=== PATIENT | female | born 1960 | race Caucasian/White ===

== ENCOUNTER 2024-12-02 12:10 | Emergency (ER) | payer OTHER, SELFPAY ==
[2024-12-02 12:17] VITALS: BP 91/52; PULSE 67; RESP 18; TEMP 37; O2SAT 99; BMI 19.2
--- NOTE | 2024-12-02 13:27 | ED.GENADULT ---
HPI - General Adult General Chief complaint: Headache/Migraine Stated complaint: Trouble with vision Time Seen by Provider: 12/02/24 12:41 History of Present Illness HPI narrative: This 64-year-old female comes in reporting sensitivity to light an a mild type headache. She states that she gets migraine headaches at times and occasionally have some visual changes that are more like scintillating scotoma. Today she comes in because she was driving home and her eyes became very sensitive to the light. It is a nicole day and there was snow on the ground so lots of bright stimuli is present today. She reports a mild headache but otherwise has good health and no other complaints. She does not report any speech change or altered sensation. Review of Systems Status of ROS: Reports: 10 or more systems reviewed and unremarkable except as noted in History and below Narrative: Constitutional: No fevers, no weight gain or loss. Eyes: No discharge. Extra sensitivity to light. HENT: No congestion, no sore throat, no ear pain. Cardiovascular: No chest pain, no palpitations. Respiratory: No shortness of breath, no wheezes, no cough. Gastrointestinal: No abdominal pain, no vomiting, no diarrhea. Genitourinary: No dysuria, no hematuria. Musculoskeletal: Normal range of motion. Skin: No rashes, no pruritis. Neurological: No dizziness, weakness, sensory change, speech change. Endo/Heme/Allergies: No bruising or bleeding. No polydipsia. Pysch: no suicidality, no anxiety, no insomnia. All other systems reviewed and are negative. Exam Narrative: Exam Narrative: Constitutional: Well-developed, well-nourished, no acute distress. HEENT: Normocephalic, atraumatic. Funduscopic exam appears normal bilaterally. Neck: Normal range of motion. Nontender. Supple. Heart: Regular. No murmurs. Normal rate. Intact distal pulses. Lungs: Clear to auscultation. No chest discomfort. No wheezes, rhonchi, or rales. Abdomen: Normal bowel sounds. Nontender. No rebound tenderness. Genitalia: Deferred. Back: No midline tenderness. Normal range of motion. Extremities: Normal range of motion. No injury. Skin: Intact. No rash. Warm. No erythema or pallor. Neurologic: No altered sensation. No weakness. Alert and oriented. No facial asymmetry. Tongue is midline. [id number] is normal. No pronator drift. Warehouse Helper strength is equal bilaterally. Able to raise each leg from the bed. Psychiatric: No suicidality. No anxiety or depression. No insomnia. Nursing notes and vitals signs are reviewed. Const: Vital Signs, click to edit/add: Vital Signs - 24 hr 12/02/24 12:17 Temperature 98.6 F Pulse Rate [Pulse Oximeter] 67 Respiratory Rate 18 Blood Pressure [Ri ght Upper Arm] 91/52 L Pulse Oximetry 99 Oxygen Delivery Me thod Room Air Course Vital Signs Vital signs: Initial Vital Signs Temperature 98.6 F 12/02/24 12:17 Temperature Source Temporal Artery Scan 12/02/24 12:17 Pulse Rate 67 12/02/24 12:17 Respiratory Rate 18 12/02/24 12:17 Blood Pressure 91/52 L 12/02/24 12:17 Blood Pressure Mean 65 L 12/02/24 12:17 Pulse Oximetry 99 12/02/24 12:17 Oxygen Delivery Method Room Air 12/02/24 12:17 Vital Signs Temperature 98.6 F 12/02/24 12:17 Pulse Rate 67 12/02/24 12:17 Respiratory Rate 18 12/02/24 12:17 Blood Pressure 91/52 L 12/02/24 12:17 Pulse Oximetry 99 12/02/24 12:17 Oxygen Delivery Method Room Air 12/02/24 12:17 Temperature 98.6 F 12/02/24 12:17 Pulse Rate 67 12/02/24 12:17 Respiratory Rate 18 12/02/24 12:17 Blood Pressure 91/52 L 12/02/24 12:17 Pulse Oximetry 99 12/02/24 12:17 Oxygen Delivery Method Room Air 12/02/24 12:17 Medical Decision Making MDM Narrative Medical decision making narrative: This 64-year-old female has a history of migraine headaches and does report a mild headache but comes in today because of distinct light sensitivity when she was driving home. She does not report any other visual changes. She arrives here with normal vital signs and has normal exam. I did discuss lab and imaging options with the patient and in a process of shared decision making these were declined. She does have sunglasses that will help her. I did also offer treatments for her headache which she also declined. Discharge Plan Discharge Clinical Impression: Migraine, Photosensitivity Patient Disposition: Home, Self-Care Condition: Stable Additional Instructions: Use [id number] medicines as needed and directed. Wear sunglasses for photosensitivity. Follow up with MD return if worsening. Stand Alone Forms: [employer] Instructions
--- OUTSIDE RECORDS SUMMARY | 2024-12-02 13:54 | XMS_ITS | Clinical Summary ---
Author Organization [facility] Address [address] [place] [address] Care Team Providers Care On Site Manager Name Role Phone Eliceo Benitez Primary Care Provider [phone] Allergies Active Allergy Reactions Criticality Noted Date Comments Acyclovir Rash Low 07/14/2013 Contrast Dye Hives 07/14/2013 Epinephrine 07/14/2013 convulsive response Fentanyl 07/14/2013 convulsive response Midazolam 07/14/2013 convulsive response Trimethoprim Difficulty breathing 07/14/2013 Medications Metoprolol Tartrate (LOPRESSOR PO) Take 12.5 mg by mouth 2 times daily Active Rosuvastatin Calcium (CRESTOR PO) Take 20 mg by mouth daily Active Warfarin Sodium (COUMADIN PO) Take 5 mg by mouth Take 1 to 1.5 tablets daily Active levothyroxine (SYNTHROID/LEVO THROID) 75 MCG tablet Take 75mcg five days a week, and take 37.5mcg two day a week (on Sundays). 0 Active liothyronine (CYTOMEL) 5 MCG tablet 6 Active LORazepam (ATIVAN) 0.5 MG tablet Only as needed. 1 Active pantoprazole (PROTONIX) 40 MG EC tablet Take 40 mg by mouth 1 Active spironolactone (ALDACTONE) 50 MG tablet Take 50 mg by mouth 7 Active torsemide (DEMADEX) 20 MG tablet TAKE 2 TABLETS EVERY MORNING & 1 TABLET EVERY AFTERNOON. ADDITIONAL TABLETS DIRECTED BY CARDIO 0 Active inclisiran (LEQVIO) 284 MG/1.5ML SOSY SQ injection Inject 284 mg Subcutaneous Active Active Problems Problem Noted Date Diagnosed Date Parathyroid disease 11/04/2021 Senile osteoporosis 10/09/2020 Encounters Date Type Department Care Team Description 10/26/2024 Orders Only [facility] [address] [place] [address] Charmaine Fuentes MD Senile osteoporosis (Primary Dx) 10/18/2024 Medical Correspondence [facility] Information Management [address] [facility] [address] [place] [phone] Scan, Non-Provider from Last 3 Months Social History Tobacco Use Types Packs/Day Years Used Date Smoking Tobacco: Never Smokeless Tobacco: Never Tobacco Cessation:Counseling Given: Yes Alcohol Use Standard Drinks/Week Comments Yes 0 (1 standard drink = 0.6 oz pur e alcohol) 3 Adolescent Education Answer Date Record ed Getting School Help Needed Not on file 07/10 Comments No Sex and Gender Information Value Date Recorded Sex Assigned at Not on file Legal Sex Female 4:01 AM PAYMENT MANAGER Gender Identity Not on file Sexual Orientation Not on file Last Filed Vital Signs Vital Sign Reading Time Taken Comments Blood Pressure 110/61 12/16/2023 4:02 PM PAYMENT MANAGER Pulse 76 12/16/2023 4:02 PM PAYMENT MANAGER Temperature 36.5 C (97.7 F) 12/16/2023 4:02 PM PAYMENT MANAGER Respiratory Rate 16 12/16/2023 4:02 PM PAYMENT MANAGER Oxygen Saturation 99% 12/16/2023 4:0 2 PM PAYMENT MANAGER Inhaled Oxygen Concentration - - Weight 47 kg (103 lb 9.6 oz) 11/10/2021 1:00 PM PAYMENT MANAGER Height 157.5 cm (5' 2) 11/13/2020 1:32 PM PAYMENT MANAGER Patient reported Body Mass Index 18.95 11/13/2020 1:32 PM PAYMENT MANAGER Plan of Treatment Upcoming Encounters Date Type Department Care Team (Late st Contact Info) Description 12/13/2024 1:30 PM PAYMENT MANAGER Infusion Therapy Visit [facility] [address] [place] [phone] Health Maintenance Due Date Last Done Comments ADVANCE CARE PLANNING 1960 ANNUAL REVIEW OF HM ORDERS 1960 CT COLONOGRAPHY 1960 FIT 1960 FLEX SIG 1960 sDNA (Cologuard) 1960 HIV SCREENING 1975 PAP 1981 LIPID 10/19/2023 10/19/2022 TSH W/FREE T4 REFLEX 10/19/2023 10/19/2022 YEARLY PREVENTIVE VISIT 05/20/2024 05/20/2023, 11/17 PHQ-2 (once per calendar year) 2024 MAMMO SCREENING 05/25/2025 05/25/2023, 05/11, 10/20/2021, Additional history exists GLUCOSE 10/19/2025 10/19/2022, 07/14/2013 COLONOSCOPY 05/20/2030 05/20/2020, 06/29/2019 COLORECTAL CANCER SCREENING 05/20/2030 DTAP/TDAP/TD IMMUNIZATION (4 - Td or Tdap) 03/05/2033 03/05/2023, 09/23/2022, 03/25/2012 RSV VACCINE (1 - 1-dose 75+ series) 2035 HEPATITIS C SCREENING Completed 05/01/2020, 007 ZOSTER IMMUNIZATION Completed 08/29/2020, 0 MENINGITIS IMMUNIZATION Aged Out 05/17/2024 No l onger eligible based on patient's age to complete this topic Pneumococcal Vaccine: 50+ Years Completed 05/17/2024, 09/30/2016, 11/15/2014, Additional history exists COVID-19 Vaccine Completed 07/14/2024, 12/2023, 06/29/2022, Additional history exists INFLUENZA VACCINE Completed 07/14/2024, , 06/29/2022, Additional history exists HPV IMMUNIZATION Aged Out No longer e ligible based on patient's age to complete this topic Procedures Procedure Name Priority Date/Time Associated Diagnosis Comments LAB RESULT - HIM SCAN 10/16/2024 12:00 AM PAYMENT MANAGER GLUCOSE (EXTERNAL RESULT) Routine 10/19/2022 1:43 PM PAYMENT MANAGER THYROID STIMULATING HORMONE (TSH) (EXTERNAL RESULT) Routine 10/19/2022 1:42 PM PAYMENT MANAGER LIPID PANEL (EXTERNAL RESULT) Routine 10/19/2022 10:38 AM PAYMENT MANAGER COLONOSCOPY - HIM SCAN 06/29/2019 from Last 3 Months or Most Recently Relevant to Health Maintenance Results * Lab Result - HIM Scan (10/16/2024 12:00 AM PAYMENT MANAGER) 10/16/2024 Provider Outside NON-BEAKER LAB TESTING Final Result * (ABNORMAL) Glucose (External Result) (10/19/2022 1:43 PM PAYMENT MANAGER) Glucose (External) 69(L) 70 - 99 mg/dL [facility] Blood 10/19/2022 1:43 PM PAYMENT MANAGER Narrative [facility] - 10/19/2022 1:43 PM PAYMENT MANAGER ENDOCRINOLOGY [facility] PROGRESS NOTE us Provider Outside LAB - [facility] EXTERNAL RESULT Final Result Performing Organization Address City/[facility]/ZIP Co de Phone Number [facility] [address] * Thyroid Stimulating Hormone (TSH) (External Result) (10/19/2022 1:42 PM PAYMENT MANAGER) TSH (External) 0.731 0.450 - 4.500 uIU/mL [facility] Blood 10/19/2022 1:42 PM PAYMENT MANAGER [facility] - 10/19/2022 1:42 PM PAYMENT MANAGER ENDOCRINOLOGY [facility] PROGRESS NOTE us Provider Outside LAB - [facility] EXTERNAL RESULT Final Result Performing Organization Address [facility]/ZIP Co de Phone Number [facility] [address] * (ABNORMAL) Lipid Panel (External Result) (10/19/2022 10:38 AM PAYMENT MANAGER) Cholesterol (External) 271(H) 100 - 199 mg/dL [facility] ([facility]) Triglycerides (External) 142 0 - 149 mg/dL [facility] ([facility]) HDL Cholesterol (External) 71 >39 mg/dL [facility] ([facility]) LDL Cholesterol Calculated (External) 175(H) 0 - 99 mg/dL [facility] ([facility]) Blood 10/19/2022 10:3 8 AM PAYMENT MANAGER Narrative [facility] ([facility]) - 10/19/2022 10:38 AM PAYMENT MANAGER See Care Everywhere-[facility] us Provider Outside LAB - HIM EXTERNAL RESULT Final Result [facility] ([facility] [address] [place] [address], [facility] [phone] * COLONOSCOPY - HIM SCAN (06/29/2019) us Historical Provider PROCEDURES Final Result from Last 3 Months or Most Recently Relevant to Health Maintenance Insurance [employer] Care Teams On Site Manager Relationship Specialty Start Date End Date Clinic, Eliceo Laura [address] [place] [id number] PCP - General 10/07/15
--- OUTSIDE RECORDS SUMMARY | 2024-12-02 13:54 | XMS_ITS | Encounter Summary ---
Author Organization [facility] Address [address] [place] [id number] Care Team Providers Care Assistant Women'S Rowing Coach Name Role Phone Eliceo Benitez Primary Care Provider Encounter Details Date Type Department Care Team (Late st Contact Info) Description 10/18/2024 Medical Correspondence [facility] Health Information Management [address] [facility] [address] [place] [address] Scan, Non-Provider Social History Tobacco Use Types Packs/Day Years Used Date Smoking Tobacco: Never Smokeless Tobacco: Never Alcohol Use Standard Drinks/Week Comments Yes 0 (1 standard drink = 0.6 oz pur e alcohol) 3 Adolescent Education Answer Date Record ed Getting School Help Needed Not on file 07/10 Comments No Sex and Gender Information Value Date Recorded Sex Assigned at Not on file Legal Sex Female 4:01 AM HR INTERNSHIP Gender Identity Not on file Sexual Orientation Not on file documented as of this encounter Plan of Treatment Upcoming Encounters Date Type Department Care Team (Late st Contact Info) Description 12/13/2024 1:30 PM HR INTERNSHIP Infusion Therapy Visit [facility] [address] [place] [phone] documented as of this encounter Visit Diagnoses Not on filedocumented in this encounter Care Teams Assistant Women'S Rowing Coach Relationship Specialty Start Date End Date Eliceo Benitez [address] [place] [id number] PCP - General 10/07/15 documented as of this encounter
--- OUTSIDE RECORDS SUMMARY | 2024-12-02 13:54 | XMS_ITS | CCD ---
Author Name Interface, [id number] Address [address] [place] [address] [address] [address] Organization [facility] Address [address] [facility] [address] [address] Care Team Providers Care Chute Puller Name Role Phone Terrence Nicomehrdad Lane Care Plan Date Type Value 01/24/2025 APPOINTMENT OV 20 MIN 01/22/2025 APPOINTMENT LAB 15 MIN 09/13/2024 APPOINTMENT OFFICE FU 20 MIN NO TREATMENT 09/04/2024 APPOINTMENT LAB 15 MIN 05/17/2024 APPOINTMENT OFFICE FU 20 MIN NO TREATMENT 05/17/2024 APPOINTMENT LAB 15 MIN 12/17/2023 APPOINTMENT OFFICE FU 20 MIN NO TREATMENT 12/10/2023 APPOINTMENT LAB 15 MIN 03/19/[address] chest w/o con trast 12/10/2023 LABORDER Iron profile 12/10/2023 LABORDER Ferritin panel 12/10/2023 LABORDER CMP 12/10/2023 LABORDER CMP 12/10/2023 LABORDER Iron profile 12/10/2023 LABORDER Ferritin panel 12/10/2023 LABORDER CBC w/ auto diff 12/10/2023 LABORDER CBC w/ auto diff 05/17/2024 LABORDER CMP 05/17/2024 LABORDER CBC w/ auto diff 05/17/2024 LABORDER Iron profile 05/17/2024 LABORDER Ferritin panel 09/04/2024 LABORDER CBC w/ auto diff 09/04/2024 LABORDER Ferritin panel 09/04/2024 LABORDER CMP 09/04/2024 LABORDER Iron profile 01/22/2025 LABORDER CBC w/ auto diff 01/22/2025 LABORDER Ferritin panel 01/22/2025 LABORDER Iron profile 01/22/2025 LABORDER CMP Reason for Visit OFFICE FU 20 MIN NO TREATMENT Encounters Date Name 01/24/2025 Iron deficiency anem ia (disorder) 01/22/2025 Iron deficiency anem ia (disorder) 01/24/2025 OV 20 MIN 01/22/2025 LAB 15 MIN Functional Status Date Name Score 08/27/2022 Karnofsky performance status 80 Immunizations Date Name Route Dose Instructions Refusal Reason Stat us Flu vaccine - Adult Comp leted Diagnostic Results Date Type Test Units Lower Limit Upper Limit Result Flag Comments Status Ordered By Specimen Source Lab Address 12/09 TIBC panel Iron& -A ug/dL 50.0 175.0 72 FINAL [facility] * [facility], [address] [place] [address] [place] [address] [id number] 09/04 CMP Alkal ine phosp hatas e U/L 36.0 125.0 62 FINAL Gale [place] * [facility], [facility] [address] [id number] 09/04 CMP ALT/S GPT U/L 0.0 34.0 37 High FINAL [facility]ale [place] * [facility], [facility] [address] [place] [address] [id number] 09/04 CMP Calci um mg/dL 8.4 10.2 9.7 FINAL [facility] [place] * [facility], [address] [facility] [address] [id number] 0 09/04 CMP GFR estim ate ml/min /1.73m ^2 56.0 Low GFR is calculate d using the CKD-EPI equation. FINAL [facility]ale [place] * [facility], [facility] [address] [id number] 0 09/04 CMP CO2 mmol/L 22.0 30.0 30 The expected total allowable error for CO2 is 5.6%. We have seen up to 10% differenc e in values if reported at the end of the 96 hour stability window. Please consider the clinical significa nce of a 2.0-2.5 mmol/L lower reported CO2 value if reported at the end of the 96 hour stability window. FINAL [facility]ale [place] * [facility], [address] [facility] [id number] 0 09/04 CMP Gluco se mg/dL 74.0 100.0 85 FINAL [facility]ale [place] * [facility], [address] [facility] [id number] 09/04 CMP Chlor amador mmol/L 96.0 107.0 97 FINAL [facility]ale [place] * [facility], [address] [facility] [id number] 0 09/04 CMP Total prote in g/dL 6.3 8.2 7.9 FINAL [facility] [place] * [facility], [address] [facility] [id number] 0 09/04 CMP BUN mg/dL 7.0 17.0 22.0 High FINAL [facility] [place] * [facility], [address] [facility] [id number] 0 09/04 CMP Creat inine mg/dL 0.66 1.25 1.10 FINAL [facility] [place] * [facility], [address] [facility] [id number] 0 09/04 CMP AST/S GOT U/L 14.0 36.0 57 High FINAL [facility] [place] * [facility], [address] [facility] [id number] 0 09/04 CMP Album in g/dL 3.5 5.0 5.1 High FINAL [facility] [place] * [facility] [place], [address] [facility] [id number] 0 09/04 CMP Bilir ubin, total mg/dL 0.2 1.3 0.7 FINAL [facility] [place] * [facility] [place], [address] [facility] [id number] 0 09/04 CMP Sodiu m mmol/L 137.0 145.0 134 Low FINAL [facility] [place] * [facility] [place], [address] [facility] [id number] 0 09/04 CMP Potas sium mmol/L 3.5 5.1 4.4 FINAL Gael [place] * [facility] [place], [address] [facility] [id number] 0 09/04 CBC w/ auto diff Ta # (ANC) K/uL 1.6 6.6 4.2 FINAL [facility], [address] [place] [address] [address] [place] [id number] 0 09/04 CBC w/ auto diff IG % % 0.0 0.5 0.5 [facility], [address] [place] [address] [address] [place] [id number] 0 09/04 CBC w/ auto diff MO # K/uL 0.2 1.3 1.0 [facility]AL [facility], [address] [place] [address] [address] [place] [id number] 0 09/04 CBC w/ auto diff MCV fL 80.0 104.0 96.0 FINAL [facility] [place], [address] [place] [address] [address] [place] [id number] 0 09/04 CBC w/ auto diff IG # K/uL 0.0 0.03 0.03 [facility]AL [facility] [place], [address] [place] [address] [address] [place] [id number] 0 09/04 CBC w/ auto diff MO % % 6.0 15.0 14.8 FINAL [facility] [place], [address] [place] [address] [address] [place] [id number] 0 09/04 CBC w/ auto diff EO # K/uL 0.0 0.6 0.2 FINAL [facility] [place], [address] [place] [address] [address] [place] [id number] 0 09/04 CBC w/ auto diff EO % % 0.0 7.0 2.7 FINAL [facility] [place], [address] [place] [address] [address] [place] [id number] 0 09/04 CBC w/ auto diff RBC M/uL 3.9 5.1 4.25 [facility] [place], [address] [place] [address] [address] [place] [id number] 0 09/04 CBC w/ auto diff MPV fL 9.5 13.4 8.8 Low [facility]AL [facility] [place], [address] [place] [address] [address] [place] [id number] 0 09/04 CBC w/ auto diff WBC K/uL 3.0 8.9 6.6 [facility]AL [facility] [place], [address] [place] [id number] 0 09/04 CBC w/ auto diff PLT K/uL 113.0 364.0 275 FINAL [facility] [place], [address] [place] [address] [address] [place] [id number] 0 09/04 CBC w/ auto diff BA % % 0.0 2.0 0.8 [facility]AL [facility] [place], [address] [place] [address] [address] [place] [id number] 0 09/04 CBC w/ auto diff BA # K/uL 0.0 0.2 0.1 [facility]AL [facility] [place], [address] [place] [address] [address] [place] [id number] 0 09/04 CBC w/ auto diff HGB g/dL 11.3 15.2 13.3 FINAL [facility] [place], [address] [place] [address] [address] [place] [id number] 0 09/04 CBC w/ auto diff RDW % 11.4 16.1 14.70 FINAL [facility] [place], [address] [place] [address] [address] [place] [id number] 0 09/04 CBC w/ auto diff LY % % 14.0 41.0 18.0 FINAL [facility] [place], [address] [place] [address] [address] [place] [id number] 0 09/04 CBC w/ auto diff LY # K/uL 0.4 3.6 1.2 FINAL [facility] - [place], [address] [address] [place] [id number] 0 09/04 CBC w/ auto diff MCH pg 26.0 35.0 31.3 FINAL [facility] [place], [address] [place] [address] [address] [place] [id number] 0 09/04 CBC w/ auto diff MCHC g/dL 30.0 35.0 32.6 FINAL [facility] [place], [address] [place] [address] [address] [place] [id number] 0 09/04 CBC w/ auto diff NRBC % #/100W BC 0.0 0.2 0.0 FINAL [facility] [place], [address] [place] [address] [address] [place] [id number] 0 09/04 CBC w/ auto diff HCT % 35.0 48.0 40.8 FINAL [facility] [place], [address] [place] [address] [place] [id number] 0 09/04 CBC w/ auto diff Ta % % 43.0 74.0 63.2 [facility]AL [facility] [place], [address] [place] [address] [place] [id number] 0 09/04 Lucas tin panel Lucas tin ng/mL 6.24 264.0 222.00 FINAL Gale [place] * [facility] [place], [address] [facility] [id number] 0 09/04 Iron profi le Iron, % satur ation % 20.0 55.0 25 FINAL Gale [place] * [facility] [place], [address] [facility] [id number] 0 09/04 Iron profi le Iron ug/dL 37.0 170.0 95 FINAL Gale [place] * [facility] [place], [address] [facility] [id number] 0 09/04 Iron profi le TIBC ug/dL 265.0 497.0 385 FINAL Gale [place] * [facility] [place], [address] [facility] [id number] 0 09/04 Iron profi le Unbou nd iron capac ity ug/dL 75.0 410.0 290 FINAL Gale [place] * [facility] [place], [address] [facility] [id number] Medications Date Name Route Dose Frequency Instructions Start Date End Date Status Cholecalcifer ol Oral inactive Inclisiran Subcutaneous every 6 months inactive Rosuvastatin Calcium Oral active Alirocumab Subcutaneous Pen Injector [id number] inactiv e Nitroglycerin Sublingual active Liothyronine Oral active Metoprolol Oral (Tartrate) stopped Levothyroxine Oral orally 37.5 mcg as directed [facility] active Evolocumab Subcutaneous Pen Injector subcutaneously 140.0 every 2 weeks inactive Torsemide Oral orally 20.0 mg daily active Rosuvastatin Calcium Oral inactiv e Oxycodone Oral 2.5 mg PRN inactive Inclisiran Subcutaneous 6 months active Lorazepam Oral active Pantoprazole (Sodium) Oral Delayed Release orally 40.0 mg QOD active Spironolacton e Oral Daily active Potassium Chloride Oral ER Tab stopped Zoledronic Acid-Mannitol IV (Reclast) yearly active Amoxicillin Oral 500.0 dental procedure active Aspirin Oral orally 81.0 mg daily act moose Aspirin Oral stop ped 05/14 Furosemide Oral PO 1.0 TABLET(S) BID 05/14 stopped 05/14 Docusate Sodium Oral PO 1.0 CAPSULE(S) BID PRN 05/14 stopped 05/14 Sennosides Oral PO 1.0 TABLET(S) daily 05/14 stopped 05/14 Metoprolol Oral (Tartrate) PO 25.0 MG BID 2008 active 03/05 Warfarin Oral PO 7.5 MG as directed 2008 active 03/05 Levothyroxine Oral PO 1.0 TABLET(S) as directed M-F 2008 active 03/05 Potassium Chloride Oral ER Cap PO 1.0 CAPSULE(S) , SUSTAINED ACTION BID 2008 inactive Problems Diagnosis Status Date of Diagnosi s Cyst of ovary (disorder) Active Ascites (disorder) Active CHF, acute on chronic Active Tricuspid regurgitation Active Ulcerative colitis Active Disorder of esophagus (disorder) Active Iron deficiency anemia (disorder) Active Hodgkin's disease (disorder) Active Cannot tolerate oral iron Active Cough (finding) Inactive Procedures Date Category Name Instructions Status 12/17/2023 Physician Order RTC MD Ordered 05/17/2024 Physician Order RTC MD Ordered 09/13/2024 Physician Order RTC MD Ordered 01/24/2025 Physician Order RTC MD Ordered Social History Date Name Value 09/13/2024 Smoking Status Never smoker 09/13/2024 Sex Female Vital Signs Date Type Value 09/13/2024 Height 62.00 09/13/2024 Weight 106.00 09/13/2024 Intravascular Systolic 98 09/13/2024 Intravascular Diastolic 54 09/13/2024 Respiratory Rate 16.00 09/13/2024 Heart Beat 58.00 09/13/2024 Body Temperature 97.80 09/13/2024 Pain Scale 0.00 09/13/2024 Oxygen Saturation 100.00 09/13/2024 BMI 19.39
--- OUTSIDE RECORDS SUMMARY | 2024-12-02 13:54 | XMS_ITS | Encounter Summary ---
Author Organization [facility] Address [address] [place] [address] Care Team Providers Care Sales And Service Representative Name Role Phone Eliceo Benitez Primary Care Provider [phone] Encounter Details Date Type Department Care Team (Late st Contact Info) Description 10/26/2024 Orders Only [facility] [address] [facility] 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 LTY NEUROPSYCHOLOGIST documented in this encounter Plan of Treatment Upcoming Encounters Date Type Department Care Team (Late st Contact Info) Description 12/13/2024 1:30 PM FACULTY NEUROPSYCHOLOGIST Infusion Therapy Visit [facility] [address] [place] [phone] documented as of this encounter Visit Diagnoses Diagnosis Senile osteoporosis- Primary documented in this encounter Care Teams Sales And Service Representative Relationship Specialty Start Date End Date Clinic, Eliceo Laura [address] [place] [id number] PCP - General 10/07/15 documented as of this encounter
--- OUTSIDE RECORDS SUMMARY | 2024-12-02 13:55 | XMS_ITS | Clinical Summary ---
Author Organization [employer] [facility] Address [address] [place] [id number] Care Team Providers Care Copper Plater Name Role Phone Erin Yuen MD Primary Care Provider [phone] Safia Kemp MD Unavailable + Nurses, Advanced Heart Failure Unavailable + Elijah Barker PharmD Unavailable [phone] Allergies Active Allergy Reactions Criticality Noted Date Comments Acyclovir Analogues Itching 05/12/2005 Blood-Group Specific Substance 03/06/2009 Patient has a nonspecific antibody. Blood product orders may be delayed. Draw one red top and two purple top tubes for all Type and Screen/ Type and Crossmatch orders. Diatrizoate Allergen Hives 03/27/2005 Epinephrine Other - Describe In Comment Field 03/27/2005 painful heartbeat, racing heart rate, Fentanyl 10/29/2009 Pt states she had jerking and BP increase Midazolam *Unknown 10/29/2009 Pt states she had jerking and BP increase with fentanyl and another medication which they gave with for a broncoscopy, thinks may be versed. Had versed 11/25/18 for CA without issue. Polymyxin B Sulf-Trimethoprim Laryngospasm 05/12/2005 Trimethoprim Dyspnea 07/14/2013 Medications liothyronine (CYTOMEL) 5 mcg tabletIndications:Othe r specified hypothyroidism Take 2.5 mcg by mouth every morning. 0 2015 Active NITROSTAT 0.4 mg sublingual tabletIndications:Ches t pain, atypical Dissolve one tablet under tongue every 5 mins as needed for chest pain for 3 doses. 25 tablet 0 2015 Active pantoprazole (PROTONIX) 40 mg delayed-release tablet Take 40 mg by mouth once every other day. 2021 Active zoledronic acid in mannitol & water (RECLAST) 5 mg/100 mL infusion Inject intravenous every 1 year. 2021 Active levothyroxine (SYNTHROID) 75 mcg tabletIndications:Othe r specified hypothyroidism Take 75 mcg oral five days a week (on Wed through Wednesday) and take 37.5 mcg oral on Wed and Wednesday. 90 Tablet 3 2021 Active aspirin chewable 81 mg chewable tabletIndications:Santa riosclerotic heart disease (ASHD) Chew 1 Tablet (81 mg) by mouth once daily with a meal. 90 Tablet 2 022 10:52 AM CDT 2021 Active amoxicillin (AMOXIL) 500 mg tabletIndications:H/O prosthetic heart valve Take 4 tablets by mouth 1 hour prior to dental procedure. 4 Tablet 1 2022 Active LORazepam (ATIVAN) 0.5 mg tabIndications:Insomni a, unspecified type TAKE 1-2 TABLETS BY MOUTH AT BEDTIME NEEDED 30 Tablet 2023 Active metoprolol tartrate (LOPRESSOR) 25 mg tabletIndications:SVT (supraventricular tachycardia) (HC) TAKE 1/2 TABLET TWICE A DAY BY MOUTH 90 Tablet 3 2023 Active spironolactone (ALDACTONE) 50 mg tabletIndications:Acut e on chronic diastolic heart failure (HC),Mitral valve replaced Take 1 Tablet (50 mg) by mouth once daily. 90 Tablet 1 2023 Active rosuvastatin (CRESTOR) 10 mg tabletIndications:Pure hypercholesterolemia Take 1 Tablet (10 mg) by mouth once daily. 90 Tablet 3 2023 Active inclisiran (LEQVIO) 284 mg/1.5 mL subcutaneous syringeIndications:Pur e hypercholesterolemia,A SHD (arteriosclerotic heart disease) Inject 284 mg subcutaneous EVERY 26 WEEKS. 1.5 mL 2023 Active warfarin (COUMADIN) 5 mg tabletIndications:H/O mitral valve replacement with mechanical valve,Anticoagulation monitoring, INR range 2.5-3.5 Take by mouth 7.5 mg (5 mg x 1.5) every Sun, Tue, Ivanna; 5 mg (5 mg x 1) all other days in the evening OR as directed 115 Tablet 2024 Active losartan (COZAAR) 25 mg tabletIndications:HTN (hypertension) Take 1 Tablet (25 mg) by mouth once daily. 30 Tablet 3 2024 Active torsemide (DEMADEX) 20 mg tabletIndications:Acut e on chronic diastolic heart failure (HC),H/O mitral valve replacement Take 20 mg as needed for weight gain of 3 or mor lbs in a day or 5 or more lbs in a week. 30 Tablet 1 2024 Active torsemide (DEMADEX) 20 mg tabletIndications:Acut e on chronic diastolic heart failure (HC),H/O mitral valve replacement Take 1 Tablet (20 mg) by mouth once daily. Until weight is back down to 98~99 lbs 11/29 Discontinued( *Medication adjustment) warfarin (COUMADIN) 5 mg tabletIndications:H/O mitral valve replacement with mechanical valve,Anticoagulation monitoring, INR range 2.5-3.5 Take by mouth 7.5 mg (5 mg x 1.5) every Sun, Tue, Ivanna; 5 mg (5 mg x 1) all other days in the evening OR as directed 11/08 Discontinued Active Problems Problem Noted Date Diagnosed Date (HFpEF) heart failure with preserved ejection fr action 06/21/2024 Closed nondisplaced comminut ed fracture of right patella with routine healing 03/11/2023 S/P AVR (aortic valve replacement) 07/17/2022 Overview (07/17/2022): Aortic Valve. On-X Prosthetic Heart Valve with Standard Sewing Ring. On-X pinion-pins, Inc. Size: 21. REF: ONXAE-21. SN: [id number]. Implanted by Dr. Briscoe on 07/17/2022. S/P TVR (tricuspid valve replacement) 07/17/2022 Overview (07/17/2022): Tricuspid valve: 29 mm epic tissue valve implanted by Dr. Rik Briscoe on 07/17/22. Aortic insufficiency with aortic stenosis 2021 Nonrheumatic tricuspid valve regurgitation 04/24 Arteriosclerotic heart disease (ASHD) 04/24/2022 Overview (04/24/2022): - RCA lesion by CTA Abnormal results of pulmonary function studies 0 12/01/2021 History of Hodgkin's disease 12/01/2021 Overview (12/01/2021): s/p radiation with resultant radiation induced hypothyroidism and mitral valve disease. ; Personal history of Hodgkin's disease Skin cancer, basal cell 12/01/2021 CHF (congestive heart failure) 12/01/2021 Overview (12/01/2021): postop restrictive/constrictive physiology with intermittent right sided heart failure. No significant increase in pericardial thickness on CT or MRI. Possibly partiially secondary to tricuspid insufficiency. Social Services Director Dr. Jorge Lopez [facility] [place]. Osteoporosis 11/17/2021 Overview (05/17/2024): Treated with yearly Reclast starting in 2020. Hyperparathyroidism 11/17/2021 H/O splenectomy 11/17/2021 Normocytic anemia 05/26/2020 Heart failure with preserved ejection fraction 0 05/26/2020 GERD (gastroesophageal reflux disease) 0 Iron deficiency anemia 04/16/2020 Polyp of duodenum 12/08/2017 Chronic ulcerative pancolitis 10/28/2017 Microscopic hematuria 06/15/2017 Drug-induced acute pancreatitis 04/29/2017 Nonspecific abdominal pain 04/01/2017 Benign neoplasm of ascending colon 01/01/2017 H/O mitral valve replacement with mechanical larisa ve 06/21/2014 Anticoagulation monitoring, INR range 2.5-3.5 Hypothyroidism 08/10/2013 Hot flashes, menopausal 04/10/2013 S/P hysterectomy 03/26/2012 Overview (12/01/2021): 2001, menorrhagia and adenomyosis Other and unspecified hyperlipidemia 10/22/2010 Cyst of ovary 12/13/2007 Overview (12/01/2021): found to be hemorrhagic cysts with colonic adhesions, s/p BSO ; Cyst Ovary MITRAL VALVE DISORDERS Overview (01/12/2006): - Mitral valve prosthesis 05/13/05 SUPRAVENTRICULAR TACHYCARDIA Overview (01/12/2006): - Status post Radiofrequency ablation 05/13/05. HISTORY OF ULCERATIVE COLITIS Stricture of female urethra Resolved Problems Problem Noted Date Diagnosed Date Resolved Date Unstable angina 05/18/2022 12/16/2022 SVT (supraventricular tachycardia) 11/17/2021 11/17/2021 Senile osteoporosis 10/09/2020 12/17/19 23 GI bleed 05/26/2020 11/17/2021 Small bowel obstruction 03/14/2020 02/0 04/2022 Abdominal distension, gaseous 12/08/2017 12/16/2022 Epigastric pain 12/08/2017 12/16/2022 Gastro-esophageal reflux dis ease with esophagitis 12/08/2017 12/16/2022 Unsp abnormal finding in spe cimens from oth org/tiss 05/05/2017 12/16/2022 Severe headache 06/21/2014 11/17/2021 Right leg pain 01/28/2014 04/16/2014 H/O mitral valve replacement 08/10/2013 11/17/2021 Chest pain, atypical 07/14/2013 022 Overview (07/14/2013): Equivocal stress test at [place] with normal echocardiogram images but subtle ECG changes. Palpitations 11/17/2021 PRIOR HODGKIN'S DISEASE 07/12 Overview (01/12/2006): - Treated with Radiation therapy. Shortness of breath 01/29/20 14 Encounters Date Type Department Care Team Description 11/30/2024 1:00 PM ENVIRONMENTAL HEALTH AIDE Office Visit [facility] [address] [place] [address] Maryjo Chappell, [facility] Mental Health Consultants Visit 11/29/2024 2:00 PM ENVIRONMENTAL HEALTH AIDE Office Visit [facility] [address] [place] [address] Ty Vega NP CHF (5 month follow up) 11/29/2024 1:20 PM ENVIRONMENTAL HEALTH AIDE Orders Only [facility] [address] [place] [address] Lab (/) 11/29/2024 12:15 PM ENVIRONMENTAL HEALTH AIDE - 11/29/2024 11:59 PM ENVIRONMENTAL HEALTH AIDE Hospital Encounter [facility] [address] [place] [address] Ty Vega NP [place], Jean Acute on chronic diastolic heart failure (HC) 11/29/2024 Refill [facility] [address] [place] [address] Safia Kemp MD Refill Request (Torsemide) 11/29/2024 Travel 11/15/2024 2:00 PM ENVIRONMENTAL HEALTH AIDE Office Visit [facility] [address] [place] [address] Maryjo Chappell, [facility] Mental Health Consultants Visit 11/15/2024 Travel 11/14/2024 Telephone [facility] [address] [place] [address] Erin Yuen MD Anticoagulation 11/14/2024 Anticoagulation (warfarin) [facility] [address] [place] [address] Brennon Benitez Inr Anticoagulation 11/14/2024 Travel 11/08/2024 Refill [facility] [address] [place] [address] Erin Yuen MD Refill Request (Warfarin) 10/25/2024 11:00 AM ENVIRONMENTAL HEALTH AIDE Office Visit [facility] [address] [place] [address] Maryjo Chappell, [facility] Mental Health Consultants Visit; Trmt Plan 10/25/2024 Travel 10/18/2024 10:30 AM ENVIRONMENTAL HEALTH AIDE Office Visit [address] [address] Maryjo Chappell [facility] Mental Health Consultants Visit 10/17/2024 Telephone [facility] [address] [place] [address] Erin Yuen MD Anticoagulation (Review INR result and dosing plan) 10/17/2024 Anticoagulation (warfarin) [address] [address] Clinic, [place] In[facility] Anticoagulation 10/17/2024 Travel 10/03/2024 10:30 AM ENVIRONMENTAL HEALTH AIDE Orders Only [facility] [address] [place] [address] Lab, [place] Lab 10/03/2024 Anticoagulation (warfarin) [address] [address] Clinic, [place] [facility] Anticoagulation 10/03/2024 Travel 09/26/2024 10:30 AM ENVIRONMENTAL HEALTH AIDE Orders Only [address] [address] Lab, [place] [facility] 09/26/2024 Anticoagulation (warfarin) [facility] [address] [place] [address] Clinic, [place] [facility] Anticoagulation 09/26/2024 Travel 09/21/2024 11:00 AM ENVIRONMENTAL HEALTH AIDE - 09/21/2024 11:59 PM ENVIRONMENTAL HEALTH AIDE Hospital Encounter [facility] [address] [place] [address] Nicole Queen, FLEXO FOLDER GLUER OPERATOR Arteriosclerotic heart disease (ASHD) (Primary Dx) 09/21/2024 Travel 09/19/2024 11:30 AM ENVIRONMENTAL HEALTH AIDE Orders Only [facility] [address] [place] [address] Lab, [place] [facility] 09/19/2024 Anticoagulation (warfarin) [facility] [address] [place] [address] Clinic, [place] In[facility] Anticoagulation 09/19/2024 Travel 09/19/2024 Hospital/[facility] Telephone Encounter [facility] [address] [place] [address] Evonne Arteaga RN Pre Procedure (pvp/) 09/15/2024 3:30 PM ENVIRONMENTAL HEALTH AIDE Phone Office Visit [address] [address] Kalie Gama MD Covid-19 Positive Result (Today) 09/15/2024 Anticoagulation (warfarin) [address] [address] [facility] [place] Anticoagulation (Chart Update) 09/15/[address] [address] Erin Yuen MD Anticoagulation (BPA- PAXLOVID) 09/15/2024 Travel 09/15/[address] [address] Erin Yuen MD Medication Management (Tested positive for Covid) 09/14/2024 11:30 AM ENVIRONMENTAL HEALTH AIDE Orders Only [address] [address] Lab, [place] [facility] 09/14/2024 Anticoagulation (warfarin) [address] [address] Clinic, [place] [facility] Anticoagulation 09/14/2024 Telephone [facility] [address] [place] [phone] Nicole Queen, FLEXO FOLDER GLUER OPERATOR Medication Management (Leqvio) 09/13/2024 10:30 AM ENVIRONMENTAL HEALTH AIDE Office Visit [facility] [address] [facility] [place] [address] Maryjo Chappell, [facility] Mental Health Consultants Visit 09/13/2024 Travel 09/12/2024 Orders Only [facility] [address] [place] [phone] Nicole Queen NP <No scans attached> 09/12/2024 Hospital/[facility] Telephone Encounter [facility] [address] [place] [address] Nadia Galvan RN Pre Procedure (pvp) 09/05/2024 10:30 AM ENVIRONMENTAL HEALTH AIDE Orders Only [facility] [address] [place] [address] Lab, [place] [facility] 09/05/2024 Anticoagulation (warfarin) [facility] [address] [place] [address] Clinic, [place] [facility] Anticoagulation 09/05/2024 Travel from Last 3 Months Immunizations Name Administration Dates Next Due COVID-19 vaccine (IFMR Capital-Bio NTech 30mcg/0.3mL) 12YO+ BIVALENT PF, MDV 06/29/2022 COVID-19 vaccine (Pfizer-Bio NTech 30mcg/0.3mL) PF, MDV 11/17/2021,06/04/2021,01/09/2021,12/19 DT (Age < 7 years) 03/25/1989 Influenza Virus, Unspecified 09/30/2012, 08/05/2011,07/31/2009,08/08,08/08/2007,07/29/2006,07/29/2006 ,08/17/2005,10/02/2003 Influenza, IIV3 (Age >=3 years) 08/10/2013,09/30,08/05/2011 Influenza, IIV4 08/18/2023,,08/05/2021,07/25,08/31/2019,09/22/2018,10/28/2017 ,09/30/2016,07/03/2015,11/15/2014 MENINGOCOCCAL VACCINE 2 VIAL 2MO-55YO (MENVEO) 05/17/2024 Pneumococcal Conj 20-valent (Prevnar 20) 05/17/2024 Pneumococcal Poly,23-Valent (Pneumovax) 09/30/2016,10/02/2003 Pneumococcal conj 13-Valent (Prevnar 13) 11/15/2014 RSV, Recombinant ADJ Reconst ituted (Arexvy 120MCG/0.5mL) 08/18/2023 Tdap 03/05/2023,09/23/2022,03/25/2012 Zoster (Shingrix-RZV, recombinant) 08/29/2020, Family History Medical History Relation Name Comments Hodgkin's lymphoma Child Diabetes Father Heart attack Father Stroke Father ruptured brain aneursym Cancer No Family History Cancer-breast No Family History Cancer-colon No Family History Cancer-ovarian No Family History Cancer-prostate No Family History Relation Name Status Comments Child Alive Daughter Alive Father Social History Tobacco Use Types Packs/Day Years Used Date Smoking Tobacco: Never Smokeless Tobacco: Never Tobacco Cessation:Counseling Given: No Alcohol Use Standard Drinks/Week Comments Yes 1 (1 standard drink = 0.6 oz pur e alcohol) 1-2 drinks weekly PHQ-2 Answer Date Recorded PHQ-2 TOTAL SCORE 2 01/24/2024 Social Connections Answer Date Recorded Do you often feel lonely or isolated from those around you? 0 05/17/2024 Financial Resource Strain Answer Date R ecorded Difficulty of Paying Living Expenses 3 05/17/2024 Difficulty of Paying Living Expenses Not on file 05/17/2024 Food Insecurity Answer Date Recorded Do you worry your food will run out before you are able to buy more? 1 05/17/2024 Transportation Needs Answer Date Record ed Does lack of transportation keep you from medica l appointments? 1 05/17/2024 Does lack of transportation keep you from work, meetings or getting things that you need? 1 05/17/2024 Housing Stability Answer Date Recorded What is your housing situation today? 1 05/17/2024 Utilities Answer Date Recorded Do you have trouble paying f or utilities (for example, heat, electricity, water, phone)? 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 Not on file Not on file Travel History Travel Start Travel End [place] 10/31/2024 11/07/2024 Obstetrics History Last Filed Vital Signs Vital Sign Reading Time Taken Comments Blood Pressure 142/74 11/29/2024 1:46 PM ENVIRONMENTAL HEALTH AIDE Pulse 70 11/29/2024 1:46 PM ENVIRONMENTAL HEALTH AIDE Temperature 37.2 C (98.9 F) 09/21/2024 11:16 AM ENVIRONMENTAL HEALTH AIDE Respiratory Rate 16 11/29/2024 1:46 PM ENVIRONMENTAL HEALTH AIDE Oxygen Saturation 97% 11/29/2024 1:4 6 PM ENVIRONMENTAL HEALTH AIDE Inhaled Oxygen Concentration - - Weight 46.4 kg (102 lb 4.8 oz) 11/29/19 1:46 PM ENVIRONMENTAL HEALTH AIDE with shoes Height 156.2 cm (5' 1.5) 07/25/2024 1: 08 PM CDT Body Mass Index 19.02 07/25/2024 1:08 PM CDT Plan of Treatment Upcoming Encounters Date Type Department Care Team (Late st Contact Info) Description 12/12/2024 10:00 AM ENVIRONMENTAL HEALTH AIDE Orders Only [facility] [address] [place] [address] [place], [place] 12/13/2024 10:30 AM ENVIRONMENTAL HEALTH AIDE Office Visit [facility] [address] [place] [address] Maryjo Chappell, [facility] [address] [place] [address] 01/18/2025 11:30 AM CDT Office Visit [facility] [address] [place] [address] Malika Cuevas MD [address] [place] [address] 02/27/2025 11:00 AM CDT Office Visit [facility] [address] [place] [address] Erin Yuen MD [address] [place] [address] 03/07/2025 7:30 AM CDT Hospital Encounter [facility] [address] [place] [address] Min, Jonathon Valdez MD [address] [place] [address] 03/07/2025 8:30 AM CDT - 03/07/2025 9:19 AM CDT Surgery [facility] [address] [place] [address] Min, Jonathon Valdez MD [address] [place] [address] COLONOSCOPY 03/22/2025 11:00 AM CDT Appointment [facility] [address] [place] [address] Scheduled Procedures Name Priority Associated Diagnoses Date/Ti me COLONOSCOPY Tier 2 ulcerative colitis 03/07/2025 8:30 AM CDT Health Maintenance Due Date Last Done Comments HIV for age 15-65 1975 Influenza for age 50-64 06/11/2024 08/18/20 23, 06/29/2022, 08/05/2021, Additional history exists Depression screening for age 12+ 01/24/2025 01/25/2024, 01/25/2024, 01/24/2024, Additional history exists Colonoscopy through age 75 05/20/202505/20, 06/29/2019, 01/01/2017, Additional history exists Mammogram for age 45-75 06/26/2025 06/26/20 24, 05/25/2023, 10/20/2021, Additional history exists BMI (ht and wt on same day) for age 18+ 07/25/2025 07/25/2024, 06/20/2024, 05/17/2024, Additional history exists Lipids for age 45-75 10/03/2029 10/03/2024, 06/20/2024, 05/17/2024, Additional history exists Tetanus booster 03/05/2033 03/05/2023, 09/10, 03/25/2012, Additional history exists Hepatitis C screening for ag e 18-79 Completed 05/01/2020 Zoster (shingles) series for age 50+ Completed 08/29/2020, 05/01/2020 Tdap Completed 03/05/2023, 09/10, 03/25/2012 RSV vaccine for adults or Completed 08/18/2023 Pneumococcal series for age 50+ Completed 05/17/2024, 09/30/2016, 11/15/2014, Additional history exists COVID-19 vaccine series Completed 07/14/20, 10/13/2023, 06/29/2022, Additional history exists Medical Devices Implanted Type Area Web Services Manager Device Identifier Shelf Expiration Date Model / Serial / Lot Valve Mitral 25mm Heart 25mj-501 Stjude - [id number] Implanted:Qty: 1 on 05/13/[address] [facility] [employer] 25MJ-501# / [id number] / [id number] - [id number] Implanted:Qty: 1 on 05/13/2005 at [facility] [id number] / / Valve Aortic 21mm On-X Mechanical Std Sewing Ring - [id number] Implanted:Qty: 1 on 07/17/2022 by Rik Briscoe MD at [facility] N/A: Aortic Valve [employer] 04/01/2028 ONXAE-21 / [id number] / Valve Mitral 29mm Epic Plus Porcine Tissue - [id number] Implanted:Qty: 1 on 07/17/2022 by Rik Briscoe MD at [facility] N/A: Tricuspid Valve [employer] Cardiac Surgery 01/14/2024 [id number] / [id number] / Procedures Procedure Name Priority Date/Time Associated Diagnosis Comments ECHO TTE COMPLETE WO CONTRAST Routine 11/29/2024 2:36 PM ENVIRONMENTAL HEALTH AIDE Acute on chronic diastolic heart failure (HC) EXTRA TUBE BLUE Today 11/29/2024 1:27 PM ENVIRONMENTAL HEALTH AIDE PRO-BNP Routine 11/29/2024 1:27 PM ENVIRONMENTAL HEALTH AIDE Acute on chronic diastolic heart failure (HC) BASIC METABOLIC PANEL Routine 11/29/2024 1:27 PM ENVIRONMENTAL HEALTH AIDE Acute on chronic diastolic heart failure (HC) INR,POCT Routine 11/14/2024 10:17 AM ENVIRONMENTAL HEALTH AIDE H/O mitral valve replacement with mechanical valve Anticoagulation monitoring, INR range 2.5-3.5 INR,POCT Routine 10/17/2024 10:21 AM ENVIRONMENTAL HEALTH AIDE H/O mitral valve replacement with mechanical valve Anticoagulation monitoring, INR range 2.5-3.5 LIPID PANEL Routine 10/03/2024 11:20 AM ENVIRONMENTAL HEALTH AIDE Pure hypercholesterolemia ASHD (arteriosclerotic heart disease) Acute on chronic diastolic heart failure (HC) H/O mitral valve replacement BASIC METABOLIC PANEL Routine 10/03/2024 11:20 AM ENVIRONMENTAL HEALTH AIDE Pure hypercholesterolemia ASHD (arteriosclerotic heart disease) Acute on chronic diastolic heart failure (HC) H/O mitral valve replacement INR,POCT Routine 10/03/2024 11:16 AM ENVIRONMENTAL HEALTH AIDE H/O mitral valve replacement with mechanical valve Anticoagulation monitoring, INR range 2.5-3.5 INR,POCT Routine 09/26/2024 10:39 AM ENVIRONMENTAL HEALTH AIDE H/O mitral valve replacement with mechanical valve Anticoagulation monitoring, INR range 2.5-3.5 INR,POCT Routine 09/19/2024 11:47 AM ENVIRONMENTAL HEALTH AIDE H/O mitral valve replacement with mechanical valve Anticoagulation monitoring, INR range 2.5-3.5 PROTIME-INR Routine 09/14/2024 11:41 AM ENVIRONMENTAL HEALTH AIDE H/O mitral valve replacement with mechanical valve Anticoagulation monitoring, INR range 2.5-3.5 PROTIME-INR STAT 09/05/2024 11:07 AM ENVIRONMENTAL HEALTH AIDE H/O mitral valve replacement with mechanical valve Anticoagulation monitoring, INR range 2.5-3.5 INR,POCT Routine 09/05/2024 10:37 AM ENVIRONMENTAL HEALTH AIDE H/O mitral valve replacement with mechanical valve Anticoagulation monitoring, INR range 2.5-3.5 XR MAMMO ABHILASH BILAT SCREEN Routine 06/26/2024 10:04 AM CDT Breast cancer screening COLONOSCOPY 05/20/2020 10:14 AM CDT ANTI HCV Routine 05/01/2020 2:30 PM CDT Routine general medical examination at a [facility] care facility from Last 3 Months or Most Recently Relevant to Health Maintenance Results * ECHO TTE COMPLETE WO CONTRAST (11/29/2024 2:36 PM ENVIRONMENTAL HEALTH AIDE) AORTIC VALVE MEAN PG 3 mmHg EJECTION FRACTION 65 % LVEDD 3.5 cm Anatomical Region Laterality Modality Ultrasound 11/29/2024 12:1 8 PM ENVIRONMENTAL HEALTH AIDE Narrative 11/29/2024 4:35 PM ENVIRONMENTAL HEALTH AIDE ECHOCARDIOGRAM ERIN NEWMAN : 1960 64 years Study Date: 11/29/2024 12:18:56 PM Gender: F BP: 111/54 mmHg Height: 152.00 cm BSA: 1.40 m Weight: 46.00 kg Tech: FLORENCIA Referring MD: TY VEGA Site: [facility] Reading Location: [facility] STAT Patient Location: Outpatient. Procedure: 2D, Color Doppler and Spectral Doppler. Indication for study: Acute on Chronic Diastolic Heart Failure Cardiac Rhythm: Regular.Study quality: Fair. Final Impressions: 1. Normal left ventricular size, normal wall thickness, normal global systolic function, calculated EF of 65 %. 2. Right ventricular cavity size is mildly enlarged, global systolic RV function is normal. 3. The aortic valve is functioning 21 mm mechanical On-X AVR, no stenosis and no regurgitation. The aortic valve peak velocity is 1.2 m/s, the peak gradient is 5 mmHg, and the mean gradient is 3 mmHg. The aortic valve area is 2.27 cm with a dimensionless index of 0.80. The stroke volume index is 38.9 ml/m . 4. The mitral valve is a normal functioning [address] [employer] MVR, regurgitation not well visualized mitral regurgitation. Mean gradient 3.4mmHg @ 65bpm. 5. Tricuspid valve is a normal functioning 29mm Epic Plus, mean gradient 2.9mmHg @ 56bpm. Comparison Compared to prior exam of 11/29/23, there has been no significant change. Chamber Sizes and Function Normal left ventricular size, normal wall thickness, normal global systolic function, calculated EF of 65 %. No resting regional wall motion abnormality visualized. Left atrial size is not well visualized. Right ventricular cavity size is mildly enlarged, global systolic RV function is normal. The right atrium is not well visualized. The pulmonary artery is not well visualized. The sinus of Valsalva is not well visualized. The ascending aorta is not well visualized. Valves, RV Pressures and Diastolic Function The aortic valve is functioning 21 mm mechanical On-X replacement, no stenosis and no regurgitation. The mitral valve is a normal functioning [address] Jamey replacement, regurgitation not well visualized mitral regurgitation. Indeterminate pattern of LV diastolic filling. The tricuspid valve is 29mm Epic Plus. Tricuspid regurgitation is regurgitation is not well visualized. The pulmonic valve is normal. No pulmonary regurgitation. Masses, Effusion, Shunts There is no pericardial effusion. The inferior vena cava is normal sized, respiratory size variation greater than 50%. Interatrial septum is not well visualized. MEASUREMENTS AND CALCULATIONS 2-D Measurements and LV Function: LVID (d) 3.5 cm Planimetered EF 65 % LVID (s) 2.1 cm LV FS% (2D) 42 % IVS (d) 0.9 cm LVOT diameter 1.9 cm LVPW (d) 0.9 cm HR 65 bpm Aortic Valve: Vmax 1.2 m/s PAULA (V) 2.08 cm VTI 0.24 m PAULA (I) 2.27 cm LVOT V max 0.8 m/s Max PG 5 mmHg LVOT VTI 0.19 m Mean PG 3 mmHg SV 54 ml Dim Index 0.80 SV index 39 ml/m CO 3.5 l/min CI 2.5 l/min/m Mitral Valve: MV Mean G 3 mmHg Tricuspid Valve and estimated PA pressures: TV Mean G 3 mmHg Pulmonic Valve: PV AT 97 msec . This study was interpreted by an [facility] accredited facility. Final Procedure Note Lorenzo Lau MD - 11/29/2024 ECHOCARDIOGRAM ERIN NEWMAN : 1960 64 years Study Date: 11/29/2024 12:18:56 PM Gender: F BP: 111/54 mmHg Height: 152.00 cm BSA: 1.40 m Weight: 46.00 kg Tech: FLORENCIA Referring MD: TY VEGA Site: [facility] Reading Location: [facility] STAT Patient Location: Outpatient. Procedure: 2D, Color Doppler and Spectral Doppler. Indication for study: Acute on Chronic Diastolic Heart Failure Cardiac Rhythm: Regular.Study quality: Fair. Final Impressions: 1. Normal left ventricular size, normal wall thickness, normal globalsystolic function, calculated EF of 65 %. 2. Right ventricular cavity size is mildly enlarged, global systolic RVfunction is normal. 3. The aortic valve is functioning 21 mm mechanical On-X AVR, no stenosisand no regurgitation. The aortic valve peak velocity is 1.2 m/s, the peakgradient is 5 mmHg, and the mean gradient is 3 mmHg. The aortic valve areais 2.27 cm with a dimensionless index of 0.80. The stroke volume indexis 38.9 ml/m . 4. The mitral valve is a normal functioning [address] JudeMVR, regurgitation not well visualized mitral regurgitation. Mean gradient3.4mmHg @ 65bpm. 5. Tricuspid valve is a normal functioning 29mm Epic Plus, mean gradient2.9mmHg @ 56bpm. Comparison Compared to prior exam of 11/29/23, there has been no significant change. Chamber Sizes and Function Normal left ventricular size, normal wall thickness, normal globalsystolic function, calculated EF of 65 %. No resting regional wall motionabnormality visualized. Left atrial size is not well visualized. Rightventricular cavity size is mildly enlarged, global systolic RV function isnormal. The right atrium is not well visualized. The pulmonary artery isnot well visualized. The sinus of Valsalva is not well visualized. Theascending aorta is not well visualized. Valves, RV Pressures and Diastolic Function The aortic valve is functioning 21 mm mechanical On-X replacement, nostenosis and no regurgitation. The mitral valve is a normal functioning 29mm mechanical St. Jamey replacement, regurgitation not well visualizedmitral regurgitation. Indeterminate pattern of LV diastolic filling. Thetricuspid valve is 29mm Epic Plus. Tricuspid regurgitation isregurgitation is not well visualized. The pulmonic valve is normal. Nopulmonary regurgitation. Masses, Effusion, Shunts There is no pericardial effusion. The inferior vena cava is normal sized,respiratory size variation greater than 50%. Interatrial septum is notwell visualized. MEASUREMENTS AND CALCULATIONS 2-D Measurements and LV Function: LVID (d) 3.5 cm Planimetered EF 65 % LVID (s) 2.1 cm LV FS% (2D) 42 % IVS (d) 0.9 cm LVOT diameter 1.9 cm LVPW (d) 0.9 cm HR 65 bpm Aortic Valve: Vmax 1.2 m/s PAULA (V) 2.08 cm VTI 0.24 m PAULA (I) 2.27 cm LVOT V max 0.8 m/s Max PG 5 mmHg LVOT VTI 0.19 m Mean PG 3 mmHg SV 54 ml Dim Index 0.80 SV index 39 ml/m CO 3.5 l/min CI 2.5 l/min/m Mitral Valve: MV Mean G 3 mmHg Tricuspid Valve and estimated PA pressures: TV Mean G 3 mmHg Pulmonic Valve: PV AT 97 msec . This study was interpreted by an [facility] accredited facility. Final us Ty Vega NP ECHO ORD Final R esult * EXTRA TUBE BLUE (11/29/2024 1:27 PM ENVIRONMENTAL HEALTH AIDE) Blood BLOOD SPECIMEN / Unknown Extra Tube / Unknown 11/29/2024 1:27 PM ENVIRONMENTAL HEALTH AIDE 11/29/2024 1:42 PM ENVIRONMENTAL HEALTH AIDE us Ty Vega NP LABORATORY Final R esult [facility] [address] [place] [address], [place] * (ABNORMAL) PRO-BNP (11/29/2024 1:27 PM ENVIRONMENTAL HEALTH AIDE) PRO-BNP 788(H) <125 pg/mL 11/29/2024 2:16 PM ENVIRONMENTAL HEALTH AIDE [facility] Blood BLOOD SPECIMEN / Unknown Venipuncture / Unknown 11/29/2024 1:27 PM ENVIRONMENTAL HEALTH AIDE 11/29/2024 1:33 PM ENVIRONMENTAL HEALTH AIDE [facility] LABORATORY - 11/29/2024 2:16 PM ENVIRONMENTAL HEALTH AIDE The following cut-points have been suggested for the use of proBNP for the diagnostic evaluation of heart failure (HF) in patient with acute dyspnea. Patients with eGFR >= 60 Diagnosis (rule in CHF) <50 Years Old 450 pg/mL 50 - 75 Years Old 900 pg/mL >75 Years Old 1800 pg/mL Exclusion (rule out CHF) Age Independent 300 pg/mL A cutoff of 1200 pg/mL for patients with an eGFR <60 yields a diagnostic sensitivity of 89% and specificity of 72% for acute congestive heart failure. Ty Vega NP SEND OUTS Final R esult [facility] [address] [place] [address], * (ABNORMAL) BASIC METABOLIC PANEL (11/29/2024 1:27 PM ENVIRONMENTAL HEALTH AIDE) Only the most recent of2 resultswithin the time period is included. SODIUM 136 136 - 145 mmol/L 11/29/2024 2:11 PM ENVIRONMENTAL HEALTH AIDE [facility] LAB[facility] POTASSIUM 4.8 3.5 - 5.1 mmol/L 11/29/2024 2:11 PM ENVIRONMENTAL HEALTH AIDE [facility] CHLORIDE 94(L) 98 - 107 mmol/L 11/29/2024 2:11 PM [facility] CO2,TOTAL 31(H) 22 - 29 mmol/L 11/29/2024 2:11 PM [facility] LABORATORY ANION GAP 11 5 - 18 11/29/2024 2:11 PM [facility] GLUCOSE 90 70 - 99 mg/dL 11/29/2024 2:11 PM [facility] CALCIUM 10.8(H) 8.8 - 10.4 mg/dL 11/29/2024 2:11 PM [facility] Comment: Reference ranges for this test were updated on 08/15/2024 to reflect our healthy population more accurately. Reference range changes are not retroactively applied to results, but previous results using the same methodology can be interpreted in the context of the new reference range. BUN 26(H) 8 - 23 mg/dL 11/29/2024 2:11 PM [facility] CREATININE 1.12(H) 0.50 - 0.90 mg/dL 11/29/2024 2:11 PM [facility] BUN/CREAT RATIO 23(H) 10 - 20 2:11 PM [facility] eGFR 55(L) >90 mL/min/1. 73m2 11/29/2024 2:11 PM [facility] Comment:As of 2021, eG FR is calculated by the CKD-EPI creatinine equation without race adjustment. eGFR can be influenced by muscle mass, exercise, and diet. The reported eGFR is an estimation only and is only applicable if the renal function is stable. Blood BLOOD SPECIMEN / Unknown Venipuncture / Unknown 11/29/2024 1:27 PM ENVIRONMENTAL HEALTH AIDE 11/29/2024 1:33 PM [facility] Ty Vega NP CHEMISTRY Final R esult [facility] [address] [place] [address], * (ABNORMAL) INR - POCT [[id number]] - Standing Order (11/14/2024 10:17 AM ENVIRONMENTAL HEALTH AIDE) Only the most recent of6 resultswithin the time period is included. INR 2.9(H) ratio [facility] Comment: INRs >2.9 may be falsely elevated in patients receiving either unfractionated Heparin or Low Molecular Weight Heparin. Follow up testing in a hospital laboratory may be helpful if clinically indicated. INR results of > or = 5.0 should be verified using the standard venipuncture procedure. Reference Range 0.9-1.1 Moderate-intensity Warfarin Therapy 2.0-3.0 Higher-intensity Warfarin Therapy 3.0-4.0 PROTHROMBIN TIMEP 35.2(H) 10.5 - 13.1 sec [facility] Comment: Point of care fingerstick Prothrombin Time/INR results may vary from venous Prothrombin Time/INR methodologies. Any results exhibiting inconsistency with the patient's clinical status should be repeated using a venous Prothrombin Time/INR method. Blood BLOOD SPECIMEN / Unknown 11/14/2024 10:17 AM ENVIRONMENTAL HEALTH AIDE 11/14/2024 10:17 AM ENVIRONMENTAL HEALTH AIDE Erin Yuen MD LABORATORY Final Res ult [facility] [address] [place] [address], [facility] [address] [place] [address] * LIPID PANEL (10/03/2024 11:20 AM ENVIRONMENTAL HEALTH AIDE) CHOLESTEROL,TOTAL 168 100 - 199 mg/dL 10/03/2024 1:51 PM ENVIRONMENTAL HEALTH AIDE [facility] Comment: Cholesterol, Total Reference Ranges Desirable <200 mg/dL Borderline 200-239 mg/dL High >=240 mg/dL TRIGLYCERIDES 101 <150 mg/dL 10/03/2024 1:51 PM ENVIRONMENTAL HEALTH AIDE [facility] HDL CHOLESTEROL 77 >40 mg/dL 1:51 PM ENVIRONMENTAL HEALTH AIDE [facility] LAB[facility] NON-HDL CHOLESTEROL 91 <145 mg/dl 10/03/2024 1:51 PM ENVIRONMENTAL HEALTH AIDE [facility] CHOL/HDL RATIO 2.18 <4.50 10/03/2024 1:51 PM ENVIRONMENTAL HEALTH AIDE [facility] LDL CHOLESTEROL 71 <=130 mg/dL 10/03/2024 1:51 PM ENVIRONMENTAL HEALTH AIDE [facility] VLDL CHOLESTEROL 20 <=30 mg/dL 10/03/2024 1:51 PM ENVIRONMENTAL HEALTH AIDE [facility] PROVIDER ORDERED STATUS FASTING 10/03/2024 1:51 PM ENVIRONMENTAL HEALTH AIDE [facility] Blood BLOOD SPECIMEN / Unknown [facility] / Unknown 10/03/2024 11:20 AM ENVIRONMENTAL HEALTH AIDE 10/03/2024 11:20 AM ENVIRONMENTAL HEALTH AIDE Nicole Queen NP CHEMISTRY Final Result [facility] [address] [address], * (ABNORMAL) PROTIME-INR [[id number]] - Standing Order (09/14/2024 11:41 AM ENVIRONMENTAL HEALTH AIDE) Only the most recent of2 resultswithin the time period is included. INR 3.8(H) <1.3 09/14/2024 2:23 PM ENVIRONMENTAL HEALTH AIDE [facility] PROTIME 43.9(H) 10.6 - 12.4 sec 09/14/2024 2:23 PM ENVIRONMENTAL HEALTH AIDE [facility] Blood BLOOD SPECIMEN / Unknown [facility] / Unknown 09/14/2024 11:41 AM ENVIRONMENTAL HEALTH AIDE 09/14/2024 11:41 AM ENVIRONMENTAL HEALTH AIDE Narrative [facility] - 09/14/2024 2:23 PM ENVIRONMENTAL HEALTH AIDE Therapeutic Range 2.0-3.0 for most anticoagulated patients 2.5-3.5 or 4.0 for high risk patients The INR is only used for patients on stable oral anticoagulant therapy. It makes no significant contribution to the diagnosis or treatment of patients whose Protime is prolonged for other reasons. INR results are increased when heparin levels exceed 1.0 U/mL, which corresponds to an aPTT >125 seconds if the patient is on UFH. Erin Yuen MD HEMATOLOGY Final Res ult [facility] [address] [place] [address], [place] * XR MAMMO ABHILASH BILAT SCREEN (06/26/2024 10:04 AM CDT) Anatomical Region Laterality Modality BREASTS, Breast Left, Breast Right Bilateral Mammography Impressions 06/26/2024 2:41 PM CDT There is no radiographic evidence for malignancy. Recommend annual mammograms. MAMMOGRAM ASSESSMENT: ACR 1 Negative PATIENTS: You will also receive a letter with your examination results in an easy to read format. If you have questions about your results, please contact your referring provider. Narrative 06/26/2024 2:41 PM CDT For Patients: As a result of the Century Cures Act, medical imaging exams and procedure reports are released immediately into your electronic medical record. You may view this report before your referring provider. If you have questions, please contact your health care provider. XR MAMMO ABHILASH BILAT SCREEN [[id number]] CLINICAL HISTORY: This is an asymptomatic 64 y.o. patient. INDICATION FOR EXAM: Mammogram Screening. TECHNIQUE: CC & MLO views were obtained. This study was evaluated with the assistance of Computer-Aided Detection. Breast Tomosynthesis was used in interpretation. COMPARISON FILM: Yes [facility]23 [facility]20 [facility] FINDINGS: The breasts are heterogeneously dense, which may obscure small masses. There are no dominant masses, suspicious micro calcifications or areas of architectural distortion. Erin Yuen MD MAMMO Final Res ult * COLONOSCOPY (05/20/2020 10:14 AM CDT) 05/20/2020 10:1 4 AM CDT Narrative Transcriptions Laurie Arnold MD - 05/20/2020 10:51 AM CDT [facility] Patient Name: Erin Newman Procedure Date: 05/20/2020 Gender: Female Date of : 1960 Admit Type: Ambulatory Procedure: Colonoscopy Proceduralist[facility] Referring MD: Lissette Kate Indications/Pre-Op Diagnosis: Iron deficiency anemia Medications: Monitored Anesthesia Care Procedure Description: The patient had risks, benefits and alternatives explained to andgave informed consent. The patient had a stable cardiopulmonary status and judged an adequate candidate for conscious sedation. The colonoscope was passed through the anus and advanced to theterminal ileum. The colonoscopy was performed without difficulty. The patient tolerated the procedure well. The quality of the bowel preparationwas good. Complications: No immediate complications. Estimated blood loss: Minimal. Estimated Blood Loss & Specimen: Estimated blood loss was minimal. Specimen collected: Yes and sent to Laboratory Findings: The ileum, 10 cm from the ileocecal valve appeared normal. The entire colon appeared normal. Rose score 0. Four biopsies weretaken every 10 cm with a cold forceps for ulcerative colitis surveillance. These biopsy specimens from the right colon, left colon andrectosigmoid colon were sent to Pathology. Estimated blood loss was minimal. Internal hemorrhoids were found. Impressions/Post-Op Diagnosis: - The examined portion of the ileum was normal. - The entire examined colon is normal. Rose score 0. Dysplaisia surveillance biopsies taken. - Internal hemorrhoids. Recommendation: Start pantoprazole 40 mg QD in light of mildly ulcerated GE junction stricture. Follow up path. Will need pill cam. Timing TBD. Laurie Arnold, 05/20/2020 10:51:25 AM This report has been signed electronically. Note Initiated On: 05/20/2020 10:14 AM Laurie Arnold MD PROCEDURE ORD Final Result * ANTI HCV (05/01/2020 2:30 PM CDT) HEPATITIS C ANTIBODY Non-React moose Non-React moose 05/02/2020 1:38 PM CDT [facility] Comment:Antibodies to HCV no t detected; does not exclude the possibility of exposure to HCV. Blood BLOOD SPECIMEN / Unknown Venipuncture / Unknown 05/01/2020 2:30 PM CDT 05/01/2020 2:33 PM CDT us Annabella Du MD SEND OUTS Final Resul t [facility] [address] [place] [address], from Last 3 Months or Most Recently Relevant to Health Maintenance Additional Health Concerns Infection Onset Date Last Indicated MRSA Clearance Comment:Infection Control Note: Hx of MRSA, surveillance criteria met, no need for further testing or isolation precautions. Do not delete or resolve the infection flag. 11/25/2018 11/25/2018 Insurance SHERLY CHADWICK [id number] Advance Directives Documents on File Type Date Recorded Patient Irrigation Flume Layer Expl anation Healthcare Directive 12/20/2015 INCOMPL ETE: USUSALLY HAS FOUR PAGES BUT ONE IS MISSING, 12/20/2015 Healthcare Directive 12/20/2015 016 * Full Code (Latest Code Status on File) Date Activated Date Inactivated Comments 07/17/2022 2:47 PM 07/27/2022 7:09 PM Question Answer Comments Code Status Discussion: Reviewed Preferences * Full Code Date Activated Date Inactivated Comments 07/16/2022 10:40 AM 07/17/2022 2:47 PM Question Answer Comments Code Status Discussion: Unable to Assess Preferences, Provider to review later * Full Code Date Activated Date Inactivated Comments 05/19/2022 7:36 AM 05/19/2022 8:48 PM Question Answer Comments Code Status Discussion: Reviewed Preferences * Full Code Date Activated Date Inactivated Comments 05/18/2022 1:28 PM 05/19/2022 7:36 AM Question Answer Comments Code Status Discussion: Unable to Assess Preferences, Provider to review later * Full Code Date Activated Date Inactivated Comments 04/24/2022 4:09 PM 04/24/2022 8:43 PM Question Answer Comments Code Status Discussion: Reviewed Preferences Care Teams Copper Plater Relationship Specialty Start Date End Date Erin Yuen MD [address] [place] [address] PCP - General Internal Medicine 08/14/13 Safia Kemp MD [address] [facility] [address] [place] [address] Cardiology Cardiovascular Disease 11/24/18 Nurses, Advanced Heart Failure [address], [place] [address] Advanced Heart Failure/Transplant Card 12/15/18 Elijah Barker, PharmD [address] [place] [address] Pharmacist Medication Management Pharmacology 08/03/23 08/03/26
--- OUTSIDE RECORDS SUMMARY | 2024-12-02 13:55 | XMS_ITS | Referral Summary ---
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 SHERLY SHERIDAN [id number] PCP - General 01/09/21 Additional Source Comments PLEASE NOTE: Replies to this message will not be received.[facility]
--- OUTSIDE RECORDS SUMMARY | 2024-12-02 13:55 | XMS_ITS | Clinical Summary ---
Author Organization [facility] Address [address] [place] [address] Care Team Providers Care Rf Manager Name Role Phone Lawrence Garcia MD Primary Care Provider [phone] Source Comments You are receiving this document as you are listed as the primary care provider,follow-up provider, or the patient has been referred to you for consultation.This is in compliance with the Medicare and[facility] EHR Incentive Program,which states Providers who transition their patient to another setting of careor provider of care or refers their patient to another provider of care shouldprovide summary care record for each transition of care or referral. [facility] Allergies Active Allergy Reactions Criticality Noted Date Comments Acyclovir Rash,Itching Low 07/14/2013 Blood-Group Specific Substance Other, see comments 03/06/2009 Patient has a nonspecific antibody. Blood product orders may be delayed. Draw one red top and two purple top tubes for all Type and Screen/ Type and Crossmatch orders. Epinephrine Unknown 10/02/2014 Fentanyl Unknown High 10/02/2014 Iodinated Contrast Media Hives High 04/10/2012 Midazolam Unknown 10/02/2014 Trimethoprim Anaphylaxis 04/10/2012 Medications acetaminophen (AKA TYLENOL) 500 MG chewable tablet Take 500 mg by mouth every 6 hours as needed. Active NITROGLYCERIN ER OR Active aspirin EC 81 MG enteric coated tablet Take 1 Tablet (81 mg) by mouth daily. 100 tablet 3 3 Active levothyroxine (AKA SYNTHROID) 75 MCG tablet Take 75 mcg daily 5 days per week. Alternate with 50 mcg tablet. 20 tablet 0 4 Active liothyronine (CYTOMEL) 5 MCG tablet Patient takes 2.5 Mg daily 6 Active LORazepam (ATIVAN) 0.5 MG tablet TAKE 1-2 TABLETS BY MOUTH AT BEDTIME 9 Active torsemide (DEMADEX) 20 MG tablet 2 Tablets (40 mg). 0 Active potassium chloride (KLOR-CON M) 20 MEQ ER tablet Take 40 meq in and 20 meq in pm 9 Active Pramoxine-HC (PRAMOSONE) 1-2.5 % lotion Apply topically. 8 Active rosuvastatin (CRESTOR) 20 MG tablet Take 20 mg by mouth. 9 Active spironolactone (ALDACTONE) 50 MG tablet Take 1 Tablet (50 mg) by mouth. 9 Active warfarin (COUMADIN) 5 MG tablet Take by mouth 7.5 mg (one and a half tablets) every Mon & 5 mg (one tablet) all other days OR DIRECTED 9 Active metoPROLOL tartrate 25 mg Take 12.5 mg by mouth. 9 Active cholecalcifero l (VITAMIND3) 50 MCG (1999 UT) tablet Take 2,000 Units by mouth. [address] (PROTONIX) 40 MG tablet Take 1 Tablet (40 mg) by mouth every other day. 2 Active potassium chloride 10 MEQ controlled release capsule Take by mouth. 2 Active zoledronic acid (RECLAST) 5 MG/100ML injection Administer intravenously. 2 Active inclisiran (LEQVIO) 284 MG/1.5ML injection Inject 284 mg subcutaneously every 6 months. Active amoxicillin (AMOXIL) 500 MG capsule Take 4 capsules 30-60 minutes prior to dental procedure 4 Capsule 2 5 Active Active Problems Patient Care Coordination No te Formatting of this note migh t be different from the original. This is an FYI only. No action from the clinic is required. Vika Newman was enrolled with Disease and Case Management and the case has been closed because patient is no longer eligible for a transplant. . 12/04/2022 1:52 PM EA/RN Problem Noted Date Diagnosed Date Hot flashes, menopausal 04/10/2013 Hodgkin's disease in remission 04/10/2012 Mitral valve disease 04/10/2012 History of mitral valve replacement with mechani joellen valve 03/26/2012 S/P hysterectomy 03/26/2012 Overview (05/13/2016): 2001, menorrhagia and adenomyosis S/P splenectomy 03/26/2012 Overview (05/13/2016): Hodgkins Heart valve replaced 03/17/2011 Overview (06/02/2017): Heart valve replaced by other means correction current use of anticoagulant therapy 0 03/17/2011 Overview (01/17/2018): Update from Spring 2017 IMO load. Cough 09/24/2009 correction current use of anticoagulant therapy 0 03/23/2008 Overview (06/02/2017): Anticoagulant Therapy Cyst of ovary 12/13/2007 Overview (06/02/2017): found to be hemorrhagic cysts with colonic adhesions, s/p BSO ; Cyst Ovary Ulcerative colitis 03/17/2003 Overview (06/02/2017): Colitis Ulcerative Chronic Hypothyroidism 03/17/2003 Overview (06/02/2017): Hypothyroidism Acquired Hyperlipidemia CHF (congestive heart failure) Overview (05/13/2016): postop restrictive/constrictive physiology with intermittent right sided heart failure. No significant increase in pericardial thickness on CT or MRI. Possibly partiially secondary to tricuspid insufficiency. [employer] Dr. Jorge Lopez [facility] [place]. History of Hodgkin's disease Overview (06/02/2017): s/p radiation with resultant radiation induced hypothyroidism and mitral valve disease. ; Personal history of Hodgkin's disease Skin cancer, basal cell Encounters Date Type Department Care Team Description 10/16/2024 1:10 PM KILN TENDER Office Visit [facility] [place] [address] [place] [address] Blane Kumar, [facility] Dental Hygiene (Lower anter sen. To cold) 10/16/2024 Refill [facility] [address] [place] [address] Saumya Gomez, NNAMDI Refill from Last 3 Months Immunizations Immunization Administration Dates Next Due DT Ped 03/25/1989 Flu Vac Preserv Free (3+yrs) 09/30/2012, 08/05/2011,07/31/2009,08/08/2008,,07/29/2006,07/29/2006,08/17/2005,2002 PPSV23 (Pneumovax) 10/02/2003 TDAP (ADACEL) 03/25/2012 Social History Tobacco Use Types Packs/Day Years Used Date Smoking Tobacco: Never Smokeless Tobacco: Never Alcohol Use Standard Drinks/Week Comments Never 0 (1 standard drink = 0.6 oz pur e alcohol) AUDIT-C Answer Date Recorded Q1: How often do you have a drink containing alc ohol? Never 11/21/2019 Average Number of Drinks Not on file 020 Frequency of Binge Drinking Not on file 11/11 Comments Unknown Sex and Gender Information Value Date Recorded Sex Assigned at Not on file Legal Sex Female 4:27 AM CDT Gender Identity Not on file Sexual Orientation Not on file Occupation Industry Job Start Date Job End Date Not on file Not on file Not on file Not on file Last Filed Vital Signs Vital Sign Reading Time Taken Comments Blood Pressure 112/56 09/08/2022 2:35 PM KILN TENDER Pulse 63 10/16/2024 1:19 PM KILN TENDER Temperature 36.8 C (98.3 F) 10/02/2014 7:09 PM KILN TENDER Respiratory Rate 16 10/02/2014 7:09 PM KILN TENDER Oxygen Saturation 99% 09/08/2022 2:35 PM KILN TENDER Inhaled Oxygen Concentration - - Weight 48.1 kg (106 lb) 09/08/2022 2:35 PM KILN TENDER Height 154.9 cm (5' 1) 09/08/2022 2:35 PM KILN TENDER Body Mass Index 20.03 09/08/2022 2:35 PM KILN TENDER Plan of Treatment Health Maintenance Due Date Last Done Comments HIV Screening (Preventive Services) 1976 Adult Preventive Visit 1978 Cervical Cancer Screening Due 02/08/2001 02/07/2001 Cholesterol 09/27/2012 09/27/2007, 03/31/2001 Colonoscopy 01/24/2014 01/23/2014, 01/11/2008 RSV (1 - Risk 60-74 years 1-dose series) 2020 COVID-19 Vaccine ( season) 2024 11/17/2021, 06/04/2021, 01/09/2021, Additional history exists Influenza (#1) 2024 08/18/2023, 06/11, 08/05/2021, Additional history exists Mammogram 06/26/2025 06/26/2024, 05/11, 10/20/2021, Additional history exists DTaP/Tdap/Td (5 - Tdap) 03/05/2033 03/05/20 23, 09/23/2022, 03/25/2012, Additional history exists Hep C Screening (Preventive Services) Completed 10/07/2007 Zoster/Shingles Completed 08/29/2020, 05/01/2020 MCV4 Aged Out 05/17/2024 No longer eligi ble based on patient's age to complete this topic Pneumococcal 50+ Yrs Completed 05/17/2024, 09/30/2016, 11/15/2014, Additional history exists Pneumococcal Aged Out 05/17/2024, 09/11, 11/15/2014, Additional history exists No longer eligible based on patient's age to complete this topic HepA Aged Out No longer eligi ble based on patient's age to complete this topic HepB Aged Out No longer eligi ble based on patient's age to complete this topic Hib Aged Out No longer eligi ble based on patient's age to complete this topic IPV (Polio) Aged Out No longer eligi ble based on patient's age to complete this topic Meningococcal B Aged Out No longer el igible based on patient's age to complete this topic Procedures Procedure Name Priority Date/Time Associated Diagnosis Comments PROPHYLAXIS-ADULT RECALL Routine 10/16/2024 1:10 PM KILN TENDER Localized gingival recession PERIODIC ORAL EVALUATION Routine 10/16/2024 1:10 PM KILN TENDER Localized gingival recession MM MAMMOGRAM SCREENING BILAT W CAD Routine 08/01/2012 3:41 PM CDT Screening mammogram for high-risk patient ENDOSCOPY, COLON, SCREENING/DIAGNOSTIC Routine 01/11/2008 2:00 PM CDT HEPATITIS C ANTIBODY, WITH REFLEX Routine 10/07/2007 10:32 AM KILN TENDER CHOLESTEROL, TOTAL AND HDL Routine 09/27/2007 11:11 AM KILN TENDER ANATOMICAL PATH-C Routine 02/07/2001 8:4 1 AM CDT from Last 3 Months or Most Recently Relevant to Health Maintenance Results * MM Mammogram Screening Bilat W CAD (08/01/2012 3:41 PM CDT) Anatomical Region Laterality Modality Breast Bilateral Mammography Impressions 08/02/2012 1:50 PM CDT IMPRESSION: BILATERAL BREASTS Negative, no evidence of malignancy. Normal interval follow-up is recommended in 12 months. OVERALL ASSESSMENT - CATEGORY 1 - NEGATIVE END OF IMPRESSION SJW Narrative 08/02/2012 1:50 PM CDT Comparison is made to films from 07/23/2010 (bilateral) and films from 07/23/2011 (bilateral). There is no significant interval change. Bilateral Breast Findings: There are scattered fibroglandular densities (11% - 50% fibroglandular). No significant masses, calcifications or other abnormalities are seen. Procedure Note Eddie Bailey MD - 06/09/2016 Comparison is made to films from 07/23/2010 (bilateral) and films from 07/23/2011 (bilateral). There is no significant interval change. Bilateral Breast Findings: There are scattered fibroglandular densities (11% - 50% fibroglandular). No significant masses, calcifications or other abnormalities are seen. IMPRESSION IMPRESSION: BILATERAL BREASTS Negative, no evidence of malignancy. Normal interval follow-up is recommended in 12 months. OVERALL ASSESSMENT - CATEGORY 1 - NEGATIVE END OF IMPRESSION SJW us Tawana Farmer MD RAD ALBERTO Final Result * Endoscopy, colon, diagnostic (01/11/2008 2:00 PM CDT) Anatomical Region Laterality Modality Other User Conversion ET GI PROCEDURE ORDERABLES Final Result * Hepatitis C Antibody, with Reflex (10/07/2007 10:32 AM KILN TENDER) Hepatitis C Antibody Non-reac Non Reac HP CONVERSION 10/07/2007 10:3 2 AM KILN TENDER Tawana Farmer MD LAB_1 Final Result HP CONVERSION * (ABNORMAL) Cholesterol, Total and HDL (09/27/2007 11:11 AM KILN TENDER) Cholesterol/HDL Ratio Screen 3.5 No normal range HP CONVERSION Cholesterol 215(H) <200 mg/dL HP CONVERSION HDL Cholesterol 62 >40 mg/dL HP CONVERSION 09/27/2007 11:1 1 AM KILN TENDER Result [facility] Tawana Farmer MD LAB_1 Final Result Performing Organization Address City/[facility] Co de Phone Number HP CONVERSION * Anatomical Path-C (02/07/2001 8:41 AM CDT) PAP Smear SEE TEXT No normal range HP CONVERSION Comment: Patient: VIKA PRINCE CERVICAL CYTOLOGY REPORT Pathology # [id number] Date Obtained: Date Received: LMP: 4 7 01 CLINICAL HIST PRV SMR 12 28 99 NL CERVICAL SMEAR SPECIMEN ADEQUACY: Satisfactory. ENDOCERVICAL CELLS: Present. CYTOLOGIC IMPRESSION: Within Normal Limits (Negative). Verified 02/17/01 by: (electronic signature) 02/07/2001 8:41 AM CDT Result [facility] Lavern Hopkins MD LAB_1 Final Result Performing Organization Address City/State/[facility] Co de Phone Number HP CONVERSION from Last 3 Months or Most Recently Relevant to Health Maintenance Insurance [employer] Care Teams Rf Manager Relationship Specialty Start Date End Date Lawrence Garcia MD [address] [place] [address] PCP - General 06/11/16
--- OUTSIDE RECORDS SUMMARY | 2024-12-02 13:55 | XMS_ITS | Clinical Summary ---
Author Organization [facility] Address [address] [place] [id number] Care Team Providers Care Car Hiker Name Role Phone Provider, No Primary Primary Care Provider Unava ilable Immunizations Name Administration Dates Next Due SARS-CoV-2, IM (COVID-19)(Pfizer)(Purple Label) 01/09/2021,12/19/2020 Social History Tobacco Use Types Packs/Day Years Used Date Smoking Tobacco: Never Assessed Comments Unknown Sex and Gender Information Value Date Recorded Sex Assigned at Not on file Legal Sex Female 11:28 AM [employer] Gender Identity Not on file Sexual Orientation Not on file Plan of Treatment Health Maintenance Due Date Last Done Comments HPV Testing 1960 Hepatitis C Testing 1960 Depression Screening 1972 HIV Screen 1975 Cervical Cancer Screening 1981 Lipids Standard [address] Colonography 2005 Colonoscopy 2005 Colorectal Cancer Screening 2005 Fecal Immunochemical DNA Test (FIT-DNA) 2005 Fecal Immunochemical Test (FIT) 2005 DTaP/Tdap/Td Vaccines (2 - Td or Tdap) 03/25/2022 03/25/2012 COVID-19 Vaccine ( season) 2024 01/09/2021, 12/19/2020 Influenza Vaccine (#1) 2024 , 08/31/2019, 09/22/2018, Additional history exists Respiratory Syncytial Virus (RSV) Vaccine (1 - 1-dose 75+ series) 2035 Pneumococcal Vaccine (0-49 Years) Aged Out 09/30/2016, 11/15/2014 No longer eligibl e based on patient's age to complete this topic Varicella Zoster Sequential Completed 08/29/2020, 0 05/01/2020 HIB Vaccines Aged Out No longer eligi ble based on patient's age to complete this topic HPV Vaccines Aged Out No longer eligi ble based on patient's age to complete this topic Hepatitis A Vaccines Aged Out No long er eligible based on patient's age to complete this topic Hepatitis B Vaccines Aged Out No long er eligible based on patient's age to complete this topic Meningococcal Vaccines Aged Out No lo nger eligible based on patient's age to complete this topic Insurance [employer] Care Teams Car Hiker Relationship Specialty Start Date End Date Provider, No Primary . SHERLY SHERIDAN [id number] PCP - General 01/09/21 Additional Source Comments PLEASE NOTE: Replies to this message will not be received.[facility]
== END 2024-12-02 13:45 | disposition home or self-care (01) ==
PROVIDERS: Emergency Provider Emergency Medicine Emergency Medical Services
DX: G43.909 Migraine, unspecified, not intractable, without status migrainosus (principal); H53.143 Visual discomfort, bilateral
CPT/HCPCS: 99282; 99283; 99284